=== PATIENT | female | born 2000 | race Caucasian/White ===

== ENCOUNTER 2024-07-01 17:23 | Outpatient (CLI) | payer BC, SELFPAY ==
[2024-07-01 18:31] LABS: Beta HCG Quantitative 79.97 mIU/ML
--- OUTSIDE RECORDS SUMMARY | 2024-07-01 18:57 | XMS_ITS | Data Portability ---
Author Organization [facility] [place] Address [address] [place] [address] Assessment Encounter Date Assessment Date Assessment LastModified by Organization Details LastModified Time 06/01/2024 06/01/2024 Annual gynecological exam performed. Patient will come back in a year unless there are new symptoms. [email or web address] Not available 06/01/2024 11:26:36 Plan of Treatment Reminders Order Date Submit Date Provider Last Modified By Organization Details Last Modified Time Details Appointments U/S OB DATING/ VIABILI TY 2024 09:00A M ULTRASOUND Not available Not available Not available OB SCREEN 2024 09:30A M Cornelia MOYA MD Not available Not available Not available Lab pap, IG + reflex HPV if ASC-U - if hpv positiv e run subtypi ng 16, 18/45ad d gc/chla m/trich 2024 025 [facility] (Lab), [address], [place], [address], 06/05/2024 19:11:45 CBC w/ auto diff 2024 025 [facility], [address], [address], [place], [address], 06/11/2024 10:52:42 CMP, serum or plasma 2024 025 [facility] (Lab), [address], [place], [address], 06/25/2024 04:09:55 lipid panel, blood 2024 025 [facility] (Lab), [address] [facility], [place], [address], 06/25/2024 04:09:55 TSH, serum or plasma 2024 025 [facility] (Lab), [address] [facility], [place], [address], 06/25/2024 04:09:55 25-hydr oxyvita min D2 + 25-hydr oxyvita min D3, QN, serum or plasma 2024 025 [facility] (Lab), [address] [facility], [place], [address], 06/25/2024 04:09:55 Referral None recorde d. Procedures None recorde d. Surgeries None recorde d. Imaging None recorde d. Medication Orders None recorde d. Patient TargetsNo targets recorded. Patient InstructionsNo instructions recorded. Reason for Referral None Reported. Results Created Date Observation Date Name Description Value Unit Range Abnormal Flag Note LastModifiedBy Organization Detail LastModifiedTime 06/03/1906/03/2024 IMAGE GUIDE D PAP, REFLE X HPV IF ASCUS ONLY image guided Pap, reflex HPV ASCUS only SEE RESULT S BELOW CASE REPOR T: Cytol ogy Gynec ologi wesley Repor t Case: [id number] Autho jose ramon g Provi chava: Marielos Moya MD Colle cted: 06/03 0938 Order ing Locat ion: [place] [facility] Recei khanh: 06/04 0847 First Scree n: Jared Willis, CT Speci men: Scree julien Pap - Image d, Cervi x STATE MENT OF ADEQU ACY: Satis facto ry for evalu ation Trans forma tion zone compo nent prese nt Parti ally obscu ring blood prese nt. ----- ----- ----- ----- ----- ----- ----- ----- ----- ----- ----- ----- ----- ----- ----- ----- ----- ---- FINAL DIAGN OSIS: Negat vicente for Intra epith elial Lesio n or Tia cruz (NIL) . Elect heather benavides d by Jared Willis, CT on 2024 at 1409 [employer] ----- ----- ----- ----- ----- ----- ----- ----- ----- ----- ----- ----- ----- ----- ----- ----- ----- ---- COMME NT: This speci men was revie wed by a Cytot echno logis t and/o r Patho logis t (as indic ated in this repor t) after evalu ation using the Thinp rep Imagi ng Syste m. CLINI WESLEY INFOR MATIO N: Menst rual Statu s: LMP (if appli cable ): Clini wesley Histo ry/Pr eviou s Pap: Type of Neopl eliseo (if appli cable ): Signi fican t Clini [facility] Findi ngs: Other Histo ry: Hormo faiza (if appli cable ): PAP EDUCA LEXY L NOTE: The Pap Test is a scree julien test with an inher ent false negat vicente rate. Liqui d-bas ed sampl ing may decre ase, but will not elimi maribel, false negat vicente resul ts. A negat vicente resul t does not precl ude the prese nce and/o r devel opmen t of disea se, since the prese nce of abnor mal cells in the sampl e depen ds on the locat ion of the lesio n and sampl ing techn ique. Rosa nued regul ar scree julien is the best metho d of cance r preve ntion . If repor willy cytol ogic findi ng do not corre late with physi wesley and/o r histo rical findi ngs, furth er inves tigat ion is recom erich d, as clini hung puentes nted. Not Available [facility] (Lab) [address], [place], [address], 06/05/2024 19:11:44 06/03/19 25 06/03/2024 TRICH OMONA S VAGIN SANTI (RRNA ) trichomonas vaginalis ribosomal RNA (rrna) Negati ve negati ve Not Available [facility] (Lab) [address] [facility] [address], [place], [address], 06/05/2024 19:11:45 06/03/19 25 06/03/2024 CT/GC (CATHY) , THINP REP VIAL chlamydia trachomatis, PCR Negati ve negati ve Not Available [facility] (Lab) [address] [facility] [address], [place], [address], 06/05/2024 19:11:45 06/03/19 25 06/03/2024 CT/GC (CATHY) , THINP REP VIAL neisseria gonorrhoeae, PCR Negati ve negati ve Not Available [facility] (Lab) [address] [facility] [address], [place], [address], 06/05/2024 19:11:45 Result Notes None recorded. Medical Equipment None Reported. Allergies No known drug allergies Medications Name Sig Start Date Stop Date Status Note LastModified by Organization Details LastModified Time doxycycline hyclate 100 mg capsule 06/01 completed Not Available Not Available Not Available tretinoin 0.025 % topical cream active Not Available Not Availa ble Not Available spironolactone 100 mg tablet active Not Available Not Availabl e Not Available spironolactone 06/01 completed Not Available Not Available Not Available Doxycycline 06/01 completed Not Available Not Available Not Available Vitals Date Recorded Body weight Body mass index (BMI) Body height Systolic blood pressure Diastolic blood pressure Provider Name and Address Organization Details Last Updated DateTime 06/01/2024 66350.8 g 26.1 kg/m2 160.02 cm 133 mm[Hg] 85 mm[Hg] Tricia Fuchs [facility] 11:27:35 Social History Question Answer Notes LastModified by Organizat ion Details LastModified Time Do You Have An Advance Directive? No [email or web address] Information n ot available 06/01/2024 What Is Your Level Of Alcohol Consumption? None [email or web address] Information not available 06/01/2024 Are You Blind Or Do You Have Difficulty Seeing? No [email or web address] Information not available 06/01/2024 What Is Your Level Of Caffeine Consumption? Moderate [email or web address] Information not available 06/01/2024 How Much Tobacco Do You Chew? None [email or web address] Information not available 06/01/2024 In The 14 Days Before Symptom Onset, Have You Had Close Contact With A Laboratory-confirme d COVID-19 While That Case Was Ill? No [email or web address] Information n ot available 06/01/2024 In The 14 Days Before Symptom Onset, Have You Had Close Contact With A Person Who Is Under Investigation For COVID-19 While That Person Was Ill? No [email or web address] Information not available 06/01/2024 Have You Been To An Area Known To Be High Risk For COVID-19? No [email or web address] Information not available 06/01/2024 Are You Deaf Or Do You Have Serious Difficulty Hearing? No [email or web address] Information not available 06/01/2024 What Type Of Diet Are You Following? REGULAR Information n ot available 06/01/2024 What Is The Highest Grade Or Level Of School You Have Completed Or The Highest Degree You Have Received? AC26317-1 [email or web address] Information not available 06/01/2024 Are There Any Guns Present In Your Home? No [email or web address] Information not available 06/01/2024 Do You Use Protection During Sex? No [email or web address] Information not available 06/01/2024 Do You Use Your Seat Belt Or Car Seat Routinely? Yes [email or web address] Information not available 06/01/2024 Are You Sexually Active? Yes [email or web address] Information not available 06/01/2024 Do You Have Smoke And Carbon Monoxide Detectors In Your Home? Yes [email or web address] Information not available 06/01/2024 How Much Tobacco Do You Smoke? No [email or web address] Information not available 06/01/2024 Do You Feel Stressed (tense, Restless, Nervous, Or Anxious, Or Unable To Sleep At Night)? [id number] [email or web address] Information not available 06/01/2024 Do You Use Any Illicit Or Recreational Drugs? No [email or web address] Information not available 06/01/2024 Do You Use Sunscreen Routinely? Yes [email or web address] Information not available 06/01/2024 Have You Used IV Drugs? No [email or web address] Information not available 06/01/2024 Sex: Unknown Functional Status Question Answer Note LastModified by Organizat ion Details LastModified Time Do you have difficulty walking or climbing stairs? No [email or web address] Information not available 06/01/2024 Are you able to walk? YESWOREST [email or web address] Information not available 06/01/2024 Are you able to care for yourself? Yes [email or web address] Information not available 06/01/2024 Do you have difficulty dressing or bathing? No Information not available 06/01/2024 What is your exercise level? Occasional [email or web address] Information not available 06/01/2024 Mental Status None recorded. Family History Relationship Description Onset Age of this Age Resolved Age Notes LastModified by Organization Details LastModified Time Unspecified Relation Family history unknown [email or web address] Not available 2024 11:19:23 Father No current problems or disability [email or web address] Not available 06/01 11:28:36 Mother No current problems or disability [email or web address] Not available 06/01 11:28:36 Medical History Condition Response Allergies (Food, seasonal, environmental ) N Other N Breast Cancer N Drug/Latex Allergies/Reactions N Blood Transfusion N Lung Disease N Dermatologic Disorders N Defects or Inherited Disease N Breast Problem N Gestational Diabetes N Hematologic disorders N Anesthesia Complications N History of STI N Deep Vein Thrombosis N Polycystic ovary syndrome N Anxiety Disorder N Autoimmune disease N Arthritis N Polyps N Infertility N History of abnormal pap N Acid Reflux (GERD) N Cancer N Varicosities N Stroke N Neurologic/Epilepsy N Endometriosis N High Cholesterol N Fibromyalgia N Headaches N Kidney Disease N Heart Problems N Kidney or Bladder Problems N Thyroid Problems N GI Problems N Eating Disorder N Anemia N Art (IVF or FET) N Psychiatric Illness N Ovarian Cancer N Diabetes N Pulmonary (TB, Asthma) N Hepatitis/Liver Disease N No Past Medical History N Eczema N Urinary Tract Infection N Abuse/Domestic Violence N Asthma N Trauma/Violence N Depression/ depression N Heart Disease N Pre-Eclampsia N Hypertension N Osteoporosis N Thrombophilias N Gynecological History Statement/Question Response Flow Moderate Date of LMP 05/31/2024 On BCP's at Conception? N N Was last menstrual period normal N STIs/STDs N Duration of Flow (days) 6 Current Control Method N/A Frequency of Cycle (Q days) 28 Sexually Active? Y N/A Menses Monthly Y Age of first menstrual cycle 12 Date of Last Pap Smear Sexual Problems? N Desired Control Method N/A LMP Definite N Obstetrics History GPAL:G 0 P 0 0 0 0 Past Encounters Encounter ID Performer Location Encounter Start Date Encounter Closed Date Diagnosis/Indication Diagnosis SNOMED-CT Code Diagnosis ICD10 Code Diagnosis Note [id number] Jesus Moya MD [place] [address] [address] 06/01/2024 11:18:30 06/01/2024 11:53:42 Gynecologic examination 02009917 Z01.419 Annual gynecologi wesley exam performed. Patient will come back in a year unless there are new symptoms. Suggest Calcium with Vitamin D if not eating in diet. Patient advised to get annual flu shot. Recommend yearly physicals and preform monthly breast exams. Genetic testing is available for patients with family history of cancer. Engage in safe sexual practices, use condoms. Encouraged to have daily exercise. Avoid tobacco and illicit drugs, moderation of alcohol. If BMI greater than 25 dietary consult advised. If you have any questions please call or email. Pap smear- laboratory evaluation -declined Health Concerns Section Related Observation LastModified by Organization Detai ls LastModified Time None Recorded Concern Status LastModified by Organization Details LastModified Time None Recorded Advance Directives Directive N: Payers Encounter Date Sequence Insurance Name Policy Number Policy Pablo Covered Member ID Pablo Member ID Guarantor Name 06/01/2024 1 [employer] [id number] Eleuterio Belcher [id number] Eleuterio Belcher Notes Date Note Type Note Provider Name and Address Organization Details Recorded Time 06/01/2024 text/html Annual GYNReport ed bypatient.History: no gynecologic complaints Menstrual cycle:Normal menses Urinary symptoms:No hematuria; No incontinence Vulva:No genital lesion Vagina:Normal vaginal discharge Breast:No breast pain; No breast lump Current Contraception:Elizabeth h control not practiced Sexual complaints:No sexual complaints; No pain during intercourse Menopausal Symptoms:No menopausal symptoms Psychological symptoms:No depression; No anxiety Preventive measures:Encourage self breast examination; Encourage regular exercise Jesus Moya MD [address], [place], [address], [facility] 06/01/2024 11:52:21 OBGyn Episode No OBEpisode recorded.
== END 2024-07-01 17:24 | disposition home or self-care (01) ==
LOC: ANHLAB 17:33
PROVIDERS: Visit Provider Obstetrics & Gynecology
DX: O20.0 Threatened abortion (principal); Z3A.00 Weeks of gestation of pregnancy not specified
CPT/HCPCS: 36415; 84702; 85461; 86850; 86900; 86901

== ENCOUNTER 2024-07-03 16:53 | Outpatient (CLI) | payer BC, SELFPAY ==
--- OUTSIDE RECORDS SUMMARY | 2024-07-03 17:19 | XMS_ITS | Data Portability ---
Author Organization [facility] [place] Address [address] [place] [address] Assessment Encounter Date Assessment Date Assessment LastModified by Organization Details LastModified Time 06/01/2024 06/01/2024 Annual gynecological exam performed. Patient will come back in a year unless there are new symptoms. [email or web address] Not available 06/01/2024 11:26:36 Plan of Treatment [...] 16, 18/45ad d gc/chla m/trich 2024 025 [facility] (Lab), [address], [place], [address], 06/05/2024 19:11:45 CBC w/ auto diff 2024 025 [facility], [address], [address], [place], [address], 06/11/2024 10:52:42 CMP, serum or plasma 2024 025 [facility] (Lab), [address], [place], [address], 06/25/2024 04:09:55 lipid panel, blood 2024 025 [facility] (Lab), [address] [facility], [place], [address], 06/25/2024 04:09:55 TSH, serum or plasma 2024 025 [facility] (Lab), [address] [facility], [place], [address], 06/25/2024 04:09:55 25-hydr oxyvita min D2 + 25-hydr oxyvita min D3, QN, serum or plasma 2024 025 [facility] (Lab), [address] [facility], [place], [address], 06/25/2024 04:09:55 Referral None recorde d. Procedures [...] Jared Willis, CT on 2024 at 1409 [employer] ----- ----- ----- ----- ----- ----- ----- [...] as clini hung puentes nted. Not Available [facility] (Lab) [address] [facility], [place], [address], 06/05/2024 19:11:44 06/03/19 25 06/03/2024 TRICH OMONA S VAGIN SANTI (RRNA ) trichomonas vaginalis ribosomal RNA (rrna) Negati ve negati ve Not Available [facility] (Lab) [address] [facility], [place], [address], 06/05/2024 19:11:45 06/03/19 25 06/03/2024 CT/GC (CATHY) , THINP REP VIAL chlamydia trachomatis, PCR Negati ve negati ve Not Available [facility] (Lab) [address] [facility], [place], [address], 06/05/2024 19:11:45 06/03/19 25 06/03/2024 CT/GC (CATHY) , THINP REP VIAL neisseria gonorrhoeae, PCR Negati ve negati ve Not Available [facility] (Lab) [address] [facility], [place], [address], 06/05/2024 19:11:45 Result Notes None recorded. Medical [...] Address Organization Details Last Updated DateTime 06/01/2024 27416.8 g 26.1 kg/m2 160.02 cm 133 mm[Hg] 85 mm[Hg] Tricia Fuchs [facility] 11:27:35 Social History Question Answer Notes LastModified by Organizat ion Details LastModified Time Do You Have An Advance Directive? No Information n ot available 06/01/2024 What Is Your Level Of Alcohol Consumption? None [email or web address] Information not available 06/01/2024 Are You Blind Or Do You Have Difficulty Seeing? No [email or web address] Information not available 06/01/2024 What Is Your Level Of Caffeine Consumption? Moderate [email or web address] Information not available 06/01/2024 How Much Tobacco Do You Chew? None Information not available 06/01/2024 In The 14 Days Before Symptom Onset, Have You Had Close Contact With A Laboratory-confirme d COVID-19 While That Case Was Ill? No [email or web address] Information n ot available 06/01/2024 In The 14 Days Before Symptom Onset, Have You Had Close Contact With A Person Who Is Under Investigation For COVID-19 While That Person Was Ill? No [email or web address] Information not available 06/01/2024 Have You Been To An Area Known To Be High Risk For COVID-19? No [email or web address] Information not available 06/01/2024 Are You Deaf Or Do You Have Serious Difficulty Hearing? No Information not available 06/01/2024 What Type Of Diet Are You Following? REGULAR [email or web address] Information n ot available 06/01/2024 What Is The Highest Grade Or Level Of School You Have Completed Or The Highest Degree You Have Received? [id number] [email or web address] Information not available 06/01/2024 Are There Any Guns Present In Your Home? No [email or web address] Information not available 06/01/2024 Do You Use Protection During Sex? No [email or web address] Information not available 06/01/2024 Do You Use Your Seat Belt Or Car Seat Routinely? Yes [email or web address] Information not available 06/01/2024 Are You Sexually Active? Yes [email or web address] Information not available 06/01/2024 Do You Have Smoke And Carbon Monoxide Detectors In Your Home? Yes [email or web address] Information not available 06/01/2024 How Much Tobacco Do You Smoke? No [email or web address] Information not available 06/01/2024 Do You Feel Stressed (tense, Restless, Nervous, Or Anxious, Or Unable To Sleep At Night)? [id number] [email or web address] Information not available 06/01/2024 Do You Use Any Illicit Or Recreational Drugs? No Information not available 06/01/2024 Do You Use Sunscreen Routinely? Yes [email or web address] Information not available 06/01/2024 Have You Used IV Drugs? No [email or web address] Information not available 06/01/2024 Sex: Unknown Functional Status Question Answer Note LastModified by Organizat ion Details LastModified Time Do you have difficulty walking or climbing stairs? No [email or web address] Information not available 06/01/2024 Are you able to walk? YESWOREST [email or web address] Information not available 06/01/2024 Are you able to care for yourself? Yes [email or web address] Information not available 06/01/2024 Do you have difficulty dressing or bathing? No Information not available 06/01/2024 What is your exercise level? Occasional [email or web address] Information not available 06/01/2024 Mental Status None recorded. Family History Relationship Description Onset Age of this Age Resolved Age Notes LastModified by Organization Details LastModified Time Unspecified Relation Family history unknown [email or web address] Not available 2024 11:19:23 Father No current problems or disability Not available 06/01 11:28:36 Mother No current problems or disability Not available 06/01 11:28:36 Medical History Condition Response Allergies (Food, seasonal, environmental ) N Other N Drug/Latex Allergies/Reactions N Blood Transfusion N Breast Cancer N Dermatologic Disorders N Lung Disease N Defects or Inherited Disease N Breast Problem N Gestational Diabetes N Hematologic disorders N Anesthesia Complications N History of STI N Deep Vein Thrombosis N Polycystic ovary syndrome N Anxiety Disorder N Autoimmune disease N Arthritis N Polyps N Infertility N Acid Reflux (GERD) N History of abnormal pap N Cancer N Varicosities N Stroke N Neurologic/Epilepsy N Endometriosis N High Cholesterol N Fibromyalgia N Headaches N Kidney Disease N Heart Problems N Thyroid Problems N Kidney or Bladder Problems N GI Problems N Eating Disorder [...] SNOMED-CT Code Diagnosis ICD10 Code Diagnosis Note [id number] Jesus Moya MD [place] [address] [address] 06/01/2024 11:18:30 06/01/2024 11:53:42 Gynecologic examination 07500288 Z01.419 Annual gynecologi wesley exam performed. Patient [...] Guarantor Name 06/01/2024 1 [employer] [employer] [id number] Eleuterio Belcher [id number] Eleuterio Belcher Notes Date Note Type [...] exercise Jesus Moya MD [address], [place], [address], [facility] 06/01/2024 11:52:21 OBGyn Episode No OBEpisode recorded.
[2024-07-03 17:37] LABS: Beta HCG Quantitative 37.06 mIU/ML
== END 2024-07-03 16:54 | disposition home or self-care (01) ==
LOC: ANHLAB 16:54
PROVIDERS: Visit Provider Obstetrics & Gynecology
DX: O20.0 Threatened abortion (principal); Z3A.00 Weeks of gestation of pregnancy not specified
CPT/HCPCS: 36415; 84702

== ENCOUNTER 2024-07-11 17:06 | Outpatient (RCR) | payer BC, SELFPAY ==
[2024-07-11 17:53] LABS: Beta HCG Quantitative < 2.39 mIU/ML
== END 2024-10-09 23:59 | disposition home or self-care (01) ==
LOC: ANHLAB 17:06
PROVIDERS: Visit Provider Obstetrics & Gynecology
DX: O03.9 Complete or unspecified spontaneous abortion without complication (principal)
CPT/HCPCS: 36415; 84702